=== PATIENT | female | born 2000 | race Caucasian/White ===

== ENCOUNTER 2022-11-09 13:10 | Emergency (ER) | payer OTHER, SELFPAY ==
--- NOTE | ~2022-11-09 | US_ITS ---
EXAMINATION: US OBSTETRICAL ULTRASOUND CLINICAL INFORMATION: Bleeding. Positive test. COMPARISON: None available. LMP: 10/16/2022. Gestational age by maternal dates is 3 weeks 3 days. Estimated date of delivery by maternal dates is 07/23/2023. TECHNIQUE: Transabdominal and transvaginal pelvic ultrasound was performed. Transvaginal exam was performed for better visualization of the uterus and ovaries. FINDINGS: The uterus measures 7.8 x 4.1 x 4.6 cm in dimension. No focal uterine lesion. No intrauterine gestational sac seen. Endometrial thickness measures 0.5 cm. The cervix is normal. The right ovary measures 4.9 x 1.6 x 3.1 cm. There is a 2 x 1.5 x 2.6 cm cyst with single septation. The left ovary measures 3 x 1.6 x 1.5 cm. There is a 3 mm small nonspecific echogenic focus in the left ovary. There is no fluid in the pelvis. US/US OB pelvic and transvaginal IMPRESSION: No intrauterine seen. This may be related to early gestational age.
--- NOTE | 2022-11-09 13:29 | ED_ITS ---
HPI - General Adult General Chief complaint: General Medical Stated complaint: vaginal spotting lower abd pain Time Seen by Provider: 11/09/22 14:01 Source: patient Mode of arrival: ambulatory Limitations: no limitations History of Present Illness HPI narrative: 22yoF who is who is presenting to the ER with complaints of suprapubic abdominal cramping with vaginal spotting over the past few days that has been consistent every time she wipes only a small amount. 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 Therefore on November 03 she took a home test and was positive. Then she followed up with an outpatient clinic in [place] she cannot remember the actual clinics name and she had blood test and that confirmed her . She reports she has a history of miscarriage where she bled for 3 weeks. She denies any fevers, chest pain or shortness of breath, palpitations, paresthesias, radiation of the suprapubic abdominal pain, flank pain, back pain, abnormal vaginal discharge, thoughts of STDs, constipation or diarrhea, black or bloody stools, recent travel or sick contacts, recent falls or trauma or any other symptoms complaints or concerns at this time. complaint: + test with suprapubic abdominal cramping and vaginal spotting Onset (ago): day(s) (The past few days) Related Data Previous Rx's Medication Instructions Recorded vitamin with calcium 1 tab PO DAILY 30 days #30 tabs 04/20/20 no.72-iron 27 mg-folic acid 1 mg tablet ( Vitamins Plus Low Iron) Allergies Allergy/AdvReac Type Severity Reaction Status Date / Time amoxicillin [AMOXICILLIN] Allergy Unknown HIVES Unverified 03/16/20 19:08 Review of Systems Review of Systems: Constitutional : No Fever, No Chills ENT/Mouth : No sore throat, No Rhinorrhea Eyes: No Eye Pain, No Redness Cardiovascular : No Chest Pain, No SOB Respiratory : No Cough, No Sputum, No Wheezing Gastrointestinal : No Nausea, No Vomiting, No Diarrhea, + abdominal pain, Genitourinary : + irregular bleeding, No Dysuria, No Urinary Frequency, No pelvic pain, No vaginal discharge, no hematuria Musculoskeletal : No Myalgias Skin : No rash Neuro : No Weakness, No Headache Psych : No Anxiety/Panic, No Depression Heme/Lymph: No bruising, No Lymphadenopathy Endocrine : No Polyuria, No Polydipsia Yes all other systems are reviewed and are negative [facility] Past Medical History Attestation statement: The following information was validated with the patient. Source: old records reviewed and nursing notes reviewed Social History Social History Advance Directives: No Advance Directives Information Provided: No Physical Exam ED Vital Signs: Vital Signs - 24 hr 11/09/22 13:30 Temperature 97.8 F Pulse Rate 97 Respiratory Rate 18 Blood Pressure 117/86 Pulse Oximetry 98 Oxygen Delivery Method Room Air BMI result Body Mass Index 37.4 Vital signs reviewed and all within normal limits. Appearance: Alert. Oriented X3. No acute distress. Head: Normal external exam. Normocephalic. Atraumatic. No Tilley signs noted. No raccoon eyes noted Eyes: PERRLA. EOMI. Conjunctiva and sclera normal. Eyelids normal. ENT: EAC normal. TM's Normal. Pharynx normal. Uvula midline. Moist mucous membranes. No trismus noted. No drooling noted. No muffled voice noted. Neck: Normal inspection. Neck supple. FROM. No adenopathy. Thyroid Normal. No meningeal signs. No neck mass noted. CVS: Normal heart rate and rhythm. Heart sound normal. No murmurs noted. Pulses normal throughout. Respiratory: No respiratory distress. Painless inspiration. Breath sounds normal. No wheezes/rales/rhonchi noted. Chest nontender. No accessory muscle usage noted or decreased air movement noted. Abdomen: Soft and mild suprapubic tenderness. Bowel sounds normal in all 4 quadrants. No distention noted. No organomegaly noted. No visible injury noted. : Patient refusing Back: No CVA tenderness. Full range of motion noted. Skin: Skin warm and dry. Normal skin color. Normal skin turgor. No rashes/lesions/lacerations noted. Extremities: No lower extremity edema. Extremities exhibit normal range of motion. Extremities nontender. Neuro: Oriented X 3. No motor deficit. No sensory deficit. Reflexes normal. Course Course Course Narrative: FABIOLA Hsieh is a 22-year-old female, presenting for evaluation of vaginal bleeding and lower abdominal pain. Patient reports that she found out she is 6 days ago. She has had some vaginal spotting that comes and goes. She reports that she has a history of abnormal menstrual cycles and was actually getting my period with my last . Her last menstrual cycle was October 13. She follows with [facility] for OBGYN care. Plan for labs, UA, type and screen, pelvic ultrasound Reevaluation(s) Reevaluation #1: Labs reviewed patient's serum quant is only 46. Urine is within normal limits although she has a negative . She is O positive for . Ultrasound revealed no intrauterine seen. This may be related to early gestational age. Therefore I printed out the results and handed to the patient. I wanted to perform a speculum exam although patient reports she did not make things worse I explained to her that we would not be making anything worse although she is refusing speculum exam. I also consulted with Dr. Reis he report that she should have repeat serum quant in 48 hours and follow-up with OBGYN. I also explained to her that this could be early versus spontaneous versus ectopic . Patient came out of the room and told Dr. Cano that she was on the phone with her kiss mixer and the kiss mixer told her that she could be discharged and follow up with her as an outpatient. Therefore patient eloped. Time: 16:09 Medical Decision Making Consult Healthcare Provider Management of the patient was discussed with: Insulation Worker [employer] Surface (Dr. Chato DOWELL) Lab Data MDM Lab Attestation statement: I reviewed the patient's lab results. 11/09/22 14:40 11/09/22 14:40 Labs: Lab Results 11/09/22 11/09/22 11/09/22 Range/Units 14:40 14:40 14:42 WBC 10.1 (4.8-10.8) X10*3/uL RBC 4.89 (4.20-5.50) X10*6/uL Hgb 12.3 (12.0-16.0) g/dl Hct 37.5 (37.0-47.0) % MCV 76.7 L (80.0-98.0) fL MCH 25.2 L (27.0-33.0) pg MCHC 32.8 (31.0-35.0) g/dl RDW 13.8 (11.0-16.0) % Plt Count 261 (160-400) X10*3/uL MPV 10.5 (9.4-12.3) fL Immature Gran % (Auto) 0.2 (0.0-0.4) % Neut % (Auto) 64.0 (45-73) % Lymph % (Auto) 27.9 (20-40) % [place] % (Auto) 5.4 (2-11) % Eos % (Auto) 2.1 (0-4) % Baso % (Auto) 0.4 (0-2) % Lymph # (Auto) 2.8 (1.2-4.9) X10*3/uL [place] # (Auto) 0.5 (0.1-1.2) X10*3/uL Eos # (Auto) 0.2 (0.0-0.4) X10*3/uL Baso # (Auto) 0.0 (0.0-0.2) X10*3/uL Abs Immat Gran (auto) 0.02 (0.00-0.03) X10*3/uL Absolute Neuts (auto) 6.5 (2.0-8.3) x10*3/uL Absolute Nucleated RBC 0.000 (0.0-0.012) X10*3/uL Nucleated RBC % (auto) 0.0 (0.0-0.2) /100WBC Sodium 141 (135-145) mmol/L Potassium 4.1 (3.3-5.1) mmol/L Chloride 106 (96-108) mmol/L Carbon Dioxide 30 H (22-29) mmol/L Anion Gap 9 L (12-20) BUN 8 L (9-16) mg/dL Creatinine 0.94 (0.5-1.4) mg/dL Estim Creat Clear Calc 108.1 Estimated GFR > 60 Random Glucose 93 (60-115) mg/dL Calcium 9.3 (8.4-10.2) mg/dL Total Bilirubin 0.3 (0.0-1.0) mg/dL AST 19 (5-31) U/L ALT 17 (0-31) U/L Alkaline Phosphatase 105 (39-117) U/L Total Protein 6.8 (6.5-8.0) g/dL Albumin 3.9 (3.5-5.0) g/dL Lipase 27 (8-78) U/L Beta HCG, Quant 46 mIU/mL Urine Color Yellow Urine Appearance Clear Urine pH 7.5 (5.0-9.0) Ur Specific [place] 1.010 (1.005-1.025) Urine Protein Negative (Neg-Trace) mg/dL Urine Glucose (UA) Negative (Negative) mg/dL Urine Ketones Negative (Negative) mg/dL Urine Blood Negative (Negative) Urine Nitrite Negative (Negative) Ur Leukocyte Esterase Negative (Negative) Urine RBC 0-2 (0-2) /HPF Urine WBC 0-5 (0-5) /HPF Ur Squamous Epith Cells 0-2 (0-2) /HPF Urine Bacteria None Seen (None Seen) Hyaline Casts 0-2 (0-2) /LPF Urine Test (NEGATIVE) 11/09/22 Range/Units 14:42 WBC (4.8-10.8) X10*3/uL RBC (4.20-5.50) X10*6/uL Hgb (12.0-16.0) g/dl Hct (37.0-47.0) % MCV (80.0-98.0) fL MCH (27.0-33.0) pg MCHC (31.0-35.0) g/dl RDW (11.0-16.0) % Plt Count (160-400) X10*3/uL MPV (9.4-12.3) fL Immature Gran % (Auto) (0.0-0.4) % Neut % (Auto) (45-73) % Lymph % (Auto) (20-40) % [place] % (Auto) (2-11) % Eos % (Auto) (0-4) % Baso % (Auto) (0-2) % Lymph # (Auto) (1.2-4.9) X10*3/uL [place] # (Auto) (0.1-1.2) X10*3/uL Eos # (Auto) (0.0-0.4) X10*3/uL Baso # (Auto) (0.0-0.2) X10*3/uL Abs Immat Gran (auto) (0.00-0.03) X10*3/uL Absolute Neuts (auto) (2.0-8.3) x10*3/uL Absolute Nucleated RBC (0.0-0.012) X10*3/uL Nucleated RBC % (auto) (0.0-0.2) /100WBC Sodium (135-145) mmol/L Potassium (3.3-5.1) mmol/L Chloride (96-108) mmol/L Carbon Dioxide (22-29) mmol/L Anion Gap (12-20) BUN (9-16) mg/dL Creatinine (0.5-1.4) mg/dL Estim Creat Clear Calc Estimated GFR Random Glucose (60-115) mg/dL Calcium (8.4-10.2) mg/dL Total Bilirubin (0.0-1.0) mg/dL AST (5-31) U/L ALT (0-31) U/L Alkaline Phosphatase (39-117) U/L Total Protein (6.5-8.0) g/dL Albumin (3.5-5.0) g/dL Lipase (8-78) U/L Beta HCG, Quant mIU/mL Urine Color Urine Appearance Urine pH (5.0-9.0) Ur Specific [place] (1.005-1.025) Urine Protein (Neg-Trace) mg/dL Urine Glucose (UA) (Negative) mg/dL Urine Ketones (Negative) mg/dL Urine Blood (Negative) Urine Nitrite (Negative) Ur Leukocyte Esterase (Negative) Urine RBC (0-2) /HPF Urine WBC (0-5) /HPF Ur Squamous Epith Cells (0-2) /HPF Urine Bacteria (None Seen) Hyaline Casts (0-2) /LPF Urine Test NEGATIVE (NEGATIVE) Independent Interpretation I performed an independent interpretation of an: Ultrasound (Ultrasound reviewed by myself agreeable radiology report) Radiology Impression Discussion of test interpretation with radiology: I have reviewed the radiologist's reading. Radiologist Impression: FINDINGS: The uterus measures 7.8 x 4.1 x 4.6 cm in dimension. No focal uterine lesion. No intrauterine gestational sac seen. Endometrial thickness measures 0.5 cm. The cervix is normal. The right ovary measures 4.9 x 1.6 x 3.1 cm. There is a 2 x 1.5 x 2.6 cm cyst with single septation. The left ovary measures 3 x 1.6 x 1.5 cm. There is a 3 mm small nonspecific echogenic focus in the left ovary. There is no fluid in the pelvis. US/US OB pelvic and transvaginal IMPRESSION: No intrauterine seen. This may be related to early gestational age. Discharge Plan Discharge Clinical Impression: First-trimester bleeding Patient Disposition: Elopement Prescriptions: No Action Vitamin Plus Low Iron 27 mg iron- 1 mg tablet 1 tab PO DAILY 30 Days Qty: 30 5RF Discharge Date/Time: 11/09/22 15:56
[2022-11-09 13:30] VITALS: BP 117/86; PULSE 97; RESP 18; TEMP 36.6; O2SAT 98; BMI 37.4
[2022-11-09 14:49] LABS: Basophils Percent Auto 0.4 % (0-2); Eosinophils Absolute Auto 0.2 X10*3/uL (0.0-0.4); Eosinophils Percent Auto 2.1 % (0-4); Hematocrit 37.5 % (37.0-47.0); Hemoglobin 12.3 g/dl (12.0-16.0); Imm Gran Abs Auto 0.02 X10*3/uL (0.00-0.03); Imm Gran Pct Auto 0.2 % (0.0-0.4); Lymphocytes Absolute Auto 2.8 X10*3/uL (1.2-4.9); Lymphocytes Percent Auto 27.9 % (20-40); MANUAL DIFF FLAG NO; Mean Corpuscular HGB Conc 32.8 g/dl (31.0-35.0); Mean Corpuscular Hemoglobin 25.2 pg (27.0-33.0); Mean Corpuscular Volume 76.7 fL (80.0-98.0); Mean Platelet Volume 10.5 fL (9.4-12.3); Monocytes Absolute Auto 0.5 X10*3/uL (0.1-1.2); Monocytes Percent Auto 5.4 % (2-11); Neutrophils Absolute Auto 6.5 x10*3/uL (2.0-8.3); Platelet Count 261 X10*3/uL (160-400); Red Blood Count 4.89 X10*6/uL (4.20-5.50); Red Cell Distribution Width 13.8 % (11.0-16.0); White Blood Count 10.1 X10*3/uL (4.8-10.8)
[2022-11-09 14:51] LABS: Appearance Urine Clear; Color Urine Yellow; Glucose Urine UA Negative (Negative); Leukocyte Esterase Urine Negative (Negative); Nitrite Urine Negative (Negative); PH 7.5 (5.0-9.0); Urine Blood Negative (Negative); Urine Ketones Negative (Negative); Urine Protein Negative (Neg-Trace)
[2022-11-09 14:53] LABS: Bacteria Urine None Seen (None Seen); Hyaline Casts Urine 0-2 /LPF (0-2); RBC Urine 0-2 /HPF (0-2); Squamous Epithelial Cell Urine 0-2 /HPF (0-2); WBC Urine 0-5 /HPF (0-5)
[2022-11-09 15:09] LABS: Alanine Aminotransferase 17 U/L (0-31); Albumin Level 3.9 g/dL (3.5-5.0); Alkaline Phosphatase 105 U/L (39-117); Anion Gap 9 (12-20); Aspartate Amino Transferase 19 U/L (5-31); Bilirubin Total 0.3 mg/dL (0.0-1.0); Blood Urea Nitrogen 8 mg/dL (9-16); Calcium 9.3 mg/dL (8.4-10.2); Carbon Dioxide 30 mmol/L (22-29); Chloride 106 mmol/L (96-108); Creatinine Clr Calc Pharmacy 108.1; Estimated Glomerular Filt Rate > 60; Glucose Random 93 mg/dL (60-115); Lipase 27 U/L (8-78); Potassium 4.1 mmol/L (3.3-5.1); Sodium 141 mmol/L (135-145); Total Protein 6.8 g/dL (6.5-8.0)
[2022-11-09 15:10] LABS: HCG Quantitative 46 mIU/mL
[2022-11-09 15:18] LABS: UPreg QC Valid YES
[2022-11-09 15:21] LABS: Urine Pregnancy NEGATIVE (NEGATIVE)
--- NOTE | 2022-11-09 15:55 | PC.NURSE ---
PT FOUND AT THE EXIT DOOR, SHE STATES SHE WANTS TO LEAVE AND WILL FOLLOW UP WITH [facility] [employer] [facility] SHE HAS HER US RESULTS IN HAND AND HAD BEEN EDUCATED ON RESULTS BY PROVIDER. SHE DID NOT WANT TO WAIT FOR FORMAL DISCHARGE.
== END 2022-11-09 15:56 | disposition left against medical advice (07) ==
PROVIDERS: Physician Assistant; Physician Assistant Medical; Emergency Provider Emergency Medicine; PCP Pediatrics
DX: O20.9 Hemorrhage in early pregnancy, unspecified (principal); Z3A.01 Less than 8 weeks gestation of pregnancy
CPT/HCPCS: 36415; 76801; 76817; 80053; 81001; 81025; 83690; 84702; 85025; 86850; 86900; 86901; 99282; 99284

== ENCOUNTER 2023-04-01 14:38 | Emergency (ER) | payer OTHER, SELFPAY ==
--- NOTE | 2023-04-01 14:41 | ED_ITS ---
HPI - General Adult General Chief complaint: Chest Pain Stated complaint: 6 wks preg/ chest pain Related Data Previous Rx's ?Medication ?Instructions ?Recorded vitamin with calcium 1 tab PO DAILY 30 days #30 tabs 04/20/20 no.72-iron 27 mg-folic acid 1 mg tablet ( Vitamins Plus Low Iron) Allergies Allergy/AdvReac Type Severity Reaction Status Date / Time amoxicillin [AMOXICILLIN] Allergy Unknown HIVES Verified 04/27/23 10:47 [facility] Social History Social History Smoked in Last 30 Days: No Use of substances other than those prescribed or required for medical reasons: No Advance Directives: No Advance Directives Information Provided: Yes Physical Exam ED Vital Signs: BMI result Body Mass Index 38.3 Course Course Course Narrative: This is an RME: Additional HPI, ROS, PE not included below will be deferred to primary provider. 23 yo f presents w/ cp, sob currently 6 weeks these sx have been on going for 2 days. Plan- labs, ekg. Medical Decision Making Lab Data 04/01/23 14:54 04/01/23 14:54 Labs: Lab Results 04/01/23 Range/Units 14:54 WBC 11.8 H (4.8-10.8) X10*3/uL RBC 4.51 (4.20-5.50) X10*6/uL Hgb 11.3 L (12.0-16.0) g/dl Hct 35.0 L (37.0-47.0) % MCV 77.6 L (80.0-98.0) fL MCH 25.1 L (27.0-33.0) pg MCHC 32.3 (31.0-35.0) g/dl RDW 14.6 (11.0-16.0) % Plt Count 252 (160-400) X10*3/uL MPV 10.0 (9.4-12.3) fL Immature Gran % (Auto) 0.3 (0.0-0.4) % Neut % (Auto) 74.4 H (45-73) % Lymph % (Auto) 19.1 L (20-40) % [place] % (Auto) 4.7 (2-11) % Eos % (Auto) 1.1 (0-4) % Baso % (Auto) 0.4 (0-2) % Lymph # (Auto) 2.3 (1.2-4.9) X10*3/uL [place] # (Auto) 0.6 (0.1-1.2) X10*3/uL Eos # (Auto) 0.1 (0.0-0.4) X10*3/uL Baso # (Auto) 0.1 (0.0-0.2) X10*3/uL Abs Immat Gran (auto) 0.04 H (0.00-0.03) X10*3/uL Absolute Neuts (auto) 8.8 H (2.0-8.3) x10*3/uL Absolute Nucleated RBC 0.000 (0.0-0.012) X10*3/uL Nucleated RBC % (auto) 0.0 (0.0-0.2) /100WBC PT 12.3 (11.1-13.3) SEC INR 1.0 (0.9-1.1) Sodium 137 (135-145) mmol/L Potassium 3.8 (3.3-5.1) mmol/L Chloride 106 (96-108) mmol/L Carbon Dioxide 23 (22-29) mmol/L Anion Gap 12 (12-20) BUN 8 L (9-16) mg/dL Creatinine 0.77 (0.5-1.4) mg/dL Estim Creat Clear Calc 132.5 Estimated GFR > 60 Random Glucose 91 (60-115) mg/dL Calcium 9.3 (8.4-10.2) mg/dL Magnesium 1.7 (1.6-2.6) mg/dL Total Bilirubin 0.2 (0.0-1.0) mg/dL AST 31 (5-31) U/L ALT 37 H (0-31) U/L Alkaline Phosphatase 92 (39-117) U/L B-Natriuretic Peptide 49 (<100) pg/mL Total Protein 7.1 (6.5-8.0) g/dL Albumin 3.7 (3.5-5.0) g/dL Beta HCG, Quant 02021 mIU/mL COVID-19 (OSMAN) Negative (Negative) COVID-19 Clin Com See Note Discharge Plan Discharge Clinical Impression: Eloped from emergency department Patient Disposition: Left W/O Completing Treatment Prescriptions: No Action Vitamin Plus Low Iron 27 mg iron- 1 mg tablet 1 tab PO DAILY 30 Days Qty: 30 5RF Discharge Date/Time: 04/01/23 20:38
--- NOTE | 2023-04-01 14:44 | ECG_ITS ---
Test Reason : CP,SOB Blood Pressure : / mmHG Vent. Rate : 116 BPM Atrial Rate : 116 BPM P-R Int : 140 ms QRS Dur : 066 ms QT Int : 322 ms P-R-T Axes : 052 069 -13 degrees QTc Int : 447 ms Sinus tachycardia Possible Left atrial enlargement Nonspecific T wave abnormality Abnormal ECG No previous ECGs available Referred By: Nick Robles Electronically Signed By:ANAHI BOSS
[2023-04-01 14:59] LABS: MANUAL DIFF FLAG NO
[2023-04-01 15:03] LABS: Basophils Absolute Auto 0.1 X10*3/uL (0.0-0.2); Basophils Percent Auto 0.4 % (0-2); Eosinophils Absolute Auto 0.1 X10*3/uL (0.0-0.4); Eosinophils Percent Auto 1.1 % (0-4); Hemoglobin 11.3 g/dl (12.0-16.0); Imm Gran Abs Auto 0.04 X10*3/uL (0.00-0.03); Imm Gran Pct Auto 0.3 % (0.0-0.4); Lymphocytes Absolute Auto 2.3 X10*3/uL (1.2-4.9); Lymphocytes Percent Auto 19.1 % (20-40); Mean Corpuscular HGB Conc 32.3 g/dl (31.0-35.0); Mean Corpuscular Hemoglobin 25.1 pg (27.0-33.0); Mean Corpuscular Volume 77.6 fL (80.0-98.0); Monocytes Absolute Auto 0.6 X10*3/uL (0.1-1.2); Monocytes Percent Auto 4.7 % (2-11); Neutrophils Absolute Auto 8.8 x10*3/uL (2.0-8.3); Neutrophils Percent Auto 74.4 % (45-73); Platelet Count 252 X10*3/uL (160-400); Red Blood Count 4.51 X10*6/uL (4.20-5.50); Red Cell Distribution Width 14.6 % (11.0-16.0); White Blood Count 11.8 X10*3/uL (4.8-10.8)
[2023-04-01 15:09] VITALS: BP 120/65; PULSE 88; RESP 18; TEMP 36.7; O2SAT 99; BMI 38.3
[2023-04-01 15:15] LABS: Prothrombin Time 12.3 SEC (11.1-13.3)
[2023-04-01 15:24] LABS: B Type Natriuretic Peptide 49 pg/mL (<100)
[2023-04-01 15:25] LABS: Alanine Aminotransferase 37 U/L (0-31); Albumin Level 3.7 g/dL (3.5-5.0); Alkaline Phosphatase 92 U/L (39-117); Anion Gap 12 (12-20); Aspartate Amino Transferase 31 U/L (5-31); Bilirubin Total 0.2 mg/dL (0.0-1.0); Blood Urea Nitrogen 8 mg/dL (9-16); Calcium 9.3 mg/dL (8.4-10.2); Carbon Dioxide 23 mmol/L (22-29); Chloride 106 mmol/L (96-108); Creatinine Clr Calc Pharmacy 132.5; Estimated Glomerular Filt Rate > 60; Glucose Random 91 mg/dL (60-115); Magnesium 1.7 mg/dL (1.6-2.6); Potassium 3.8 mmol/L (3.3-5.1); Sodium 137 mmol/L (135-145); Total Protein 7.1 g/dL (6.5-8.0)
[2023-04-01 15:29] LABS: COVID-19 Test Negative (Negative); IDNOW Serial# 08D9AD1C
== END 2023-04-01 20:38 | disposition left against medical advice (07) ==
PROVIDERS: Physician Assistant; Emergency Provider Emergency Medicine
DX: O26.891 Other specified pregnancy related conditions, first trimester (principal); R07.9 Chest pain, unspecified; R06.02 Shortness of breath; Z3A.01 Less than 8 weeks gestation of pregnancy; Z11.52 Encounter for screening for COVID-19
CPT/HCPCS: 36415; 80053; 83735; 83880; 84702; 85025; 85610; 87635; 93005; 99283

== ENCOUNTER 2023-04-27 10:37 | Emergency (ER) | payer OTHER, SELFPAY ==
--- NOTE | ~2023-04-27 | US_ITS ---
EXAMINATION: US OBSTETRICAL ULTRASOUND CLINICAL INFORMATION: Abdominal and pelvic pain COMPARISON: Ultrasound OB 11/09/2022 LMP: 02/16/2023. Gestational age by maternal dates is 10 weeks and 0 days. Estimated date of delivery by maternal dates is 11/23/2023. TECHNIQUE: Transabdominal ultrasound pelvis. FINDINGS: There is a single intrauterine gestational sac , embryo/fetus, and cardiac activity. Yolk sac is not visualized. There is no significant subchorionic hemorrhage or hematoma. HR: 167 beats per minute. CRL (crown rump length): 3.21 cm (10 weeks and 1 day +/- 4 days). KAVITHA (estimated date of delivery): 11/22/2023 +/- 4 days. MATERNAL ADNEXA: The right maternal ovary measures 2.4 x 1.95 2.4 cm and appears unremarkable. The left maternal ovary is not visualized. There is no significant maternal adnexal mass. No maternal pelvic ascites. US/US OB <= 14 weeks fetus IMPRESSION: 1. Single intrauterine gestation with ultrasound gestational age of 10 weeks and 1 day +/- 4 days. 2. Estimated date of delivery is 11/22/2023 +/- 4 days. 3. No maternal adnexal mass or pelvic ascites.
[2023-04-27 10:47] VITALS: BP 107/55; PULSE 88; RESP 17; TEMP 36.6; O2SAT 99; BMI 37.1
--- NOTE | 2023-04-27 12:24 | ED_ITS ---
HPI - General Adult General Chief complaint: General Medical Stated complaint: 10 wks abd pain Time Seen by Provider: 04/27/23 14:15 Source: patient Mode of arrival: ambulatory History of Present Illness HPI narrative: 23-year-old female, , who presents with current obstetric care via [facility]wives and states that she has been having increasing difficulty with constipation and states that she is 10 weeks and has had confirmation by ultrasound at approximately 6 weeks. Patient reports her last bowel movement was 4-5 days ago she denies any fevers, chills, urinary symptoms, vomiting. Patient states she has had vaginal spotting. Related Data Previous Rx's Medication Instructions Recorded vitamin with calcium 1 tab PO DAILY 30 days #30 tabs 04/20/20 no.72-iron 27 mg-folic acid 1 mg tablet ( Vitamins Plus Low Iron) Allergies Allergy/AdvReac Type Severity Reaction Status Date / Time amoxicillin [AMOXICILLIN] Allergy Unknown HIVES Verified 04/27/23 10:47 Review of Systems 2 Review of Systems: Pertinent positives and negatives as stated in HPI PMFSH Past Medical History Source: nursing notes reviewed Social History Social History Smoked in Last 30 Days: No Use of substances other than those prescribed or required for medical reasons: No Advance Directives: No Advance Directives Information Provided: Yes Physical Exam ED Vital Signs: Vital Signs - 24 hr 04/27/23 10:47 04/27/23 14:30 Temperature 98 F 98.3 F Pulse Rate 88 73 Respiratory Rate 17 12 Blood Pressure 107/55 L 102/55 L Pulse Oximetry 99 99 Oxygen Delivery Method Room Air Room Air BMI result Body Mass Index 37.1 VITAL SIGNS: Reviewed. GENERAL: Well developed, well nourished, in no acute distress. HEAD: Normocephalic/atraumatic EYES: PERRLA, EOMI EARS: Ext canals without abnormality NOSE: Nares patent bilateral OROPHARYNX: no oral lesions noted, posterior pharynx clear NECK: Supple, no adenopathy LUNGS: Normal breath sounds. No adventitious sounds or accessory muscle use. SpO2<99> CARDIOVASCULAR: Regular rate and rhythm without noted murmurs ABDOMEN: Soft, non-tender, non-distended with bowel sounds. MUSCULOSKELETAL: No tenderness, deformities, or effusions noted on gross inspection. EXTREMITIES: No cyanosis, clubbing or edema. SKIN: Inspection of the skin reveals no rashes NEUROLOGIC: Alert and oriented x 4. Strength and sensation to light touch were grossly intact x 4. Course Course Course Narrative: This is an RME: Additional HPI, ROS, PE not included below will be deferred to primary provider. 23 year 1 ectopic presents w/ lower abd pain and discomfort X 2 days. Had vaginal bleeding but it resolved. Sharp stabbing pain. Plan- labs Medical Decision Making Medical Decision Making MDM Narrative: 23-year-old female with history and clinical presentation, DDX: Constipation, UTI, SAB, no clinical suspicion for appendicitis or diverticulitis. Patient remains afebrile, she is not tachypneic or tachycardic and is oxygenating well on room air. Reviewed all investigations and hematologic indices are negative for leukocytosis or left shift, there is no anemia or thrombocytopenia. Chemistry indices are grossly within normal limits without evidence of JORDAN and there is no electrolyte or liver enzyme abnormalities. hCG-134,122. Urinalysis negative for UTI. Ultrasound demonstrates IUP with an estimated gestational age of 10 weeks and 1 day. My interpretation is patient has constipation and will be given recommendations for the best way to treat this and instructions to follow-up with her drum sander offbearer and primary care doctor. Differential Diagnosis Differential Diagnoses: The differential diagnosis associated with the presentation includes Please see the discussion above Admission/Observation Consideration of admission/observation: Escalation of care including admission/observation considered Please see the discussion above Lab Data [facility] Lab Attestation statement: I reviewed the patient's lab results. Please see the discussion above 04/27/23 12:35 04/27/23 12:35 Labs: Lab Results 04/27/23 04/27/23 Range/Units 12:35 12:39 WBC 10.2 (4.8-10.8) X10*3/uL RBC 4.81 (4.20-5.50) X10*6/uL Hgb 12.1 (12.0-16.0) g/dl Hct 37.2 (37.0-47.0) % MCV 77.3 L (80.0-98.0) fL MCH 25.2 L (27.0-33.0) pg MCHC 32.5 (31.0-35.0) g/dl RDW 14.7 (11.0-16.0) % Plt Count 238 (160-400) X10*3/uL MPV 10.7 (9.4-12.3) fL Immature Gran % (Auto) 0.3 (0.0-0.4) % Neut % (Auto) 71.8 (45-73) % Lymph % (Auto) 22.0 (20-40) % [place] % (Auto) 4.4 (2-11) % Eos % (Auto) 1.2 (0-4) % Baso % (Auto) 0.3 (0-2) % Lymph # (Auto) 2.3 (1.2-4.9) X10*3/uL [place] # (Auto) 0.5 (0.1-1.2) X10*3/uL Eos # (Auto) 0.1 (0.0-0.4) X10*3/uL Baso # (Auto) 0.0 (0.0-0.2) X10*3/uL Abs Immat Gran (auto) 0.03 (0.00-0.03) X10*3/uL Absolute Neuts (auto) 7.3 (2.0-8.3) x10*3/uL Absolute Nucleated RBC 0.000 (0.0-0.012) X10*3/uL Nucleated RBC % (auto) 0.0 (0.0-0.2) /100WBC Sodium 136 (135-145) mmol/L Potassium 4.3 (3.3-5.1) mmol/L Chloride 105 (96-108) mmol/L Carbon Dioxide 22 (22-29) mmol/L Anion Gap 13 (12-20) BUN 7 L (9-16) mg/dL Creatinine 0.76 (0.5-1.4) mg/dL Estim Creat Clear Calc 132.0 Estimated GFR > 60 Random Glucose 84 (60-115) mg/dL Calcium 9.5 (8.4-10.2) mg/dL Magnesium 1.7 (1.6-2.6) mg/dL Total Bilirubin 0.2 (0.0-1.0) mg/dL AST 21 (5-31) U/L ALT 29 (0-31) U/L Alkaline Phosphatase 104 (39-117) U/L Total Protein 7.7 (6.5-8.0) g/dL Albumin 3.8 (3.5-5.0) g/dL Beta HCG, Quant 612803 mIU/mL Urine Color Dark Yellow Urine Appearance Clear Urine pH 5.5 (5.0-9.0) Ur Specific [place] >= 1.030 H (1.005-1.025) Urine Protein Negative (Neg-Trace) mg/dL Urine Glucose (UA) Negative (Negative) mg/dL Urine Ketones Negative (Negative) mg/dL Urine Blood Negative (Negative) Urine Nitrite Negative (Negative) Ur Leukocyte Esterase Trace H (Negative) Urine RBC 0-2 (0-2) /HPF Urine WBC 0-5 (0-5) /HPF Ur Squamous Epith Cells 6-10 (0-2) /HPF Urine Bacteria 1+ (None Seen) Hyaline Casts 3-5 (0-2) /LPF Radiology Impression Discussion of test interpretation with radiology: I have reviewed the radiologist's reading. Radiologist Impression: Please see the discussion above Chronic Conditions Patient?s care impacted by: Other Discharge Plan Discharge Clinical Impression: Constipation, Patient Disposition: Home, Self-Care Instructions: (ED), Constipation (ED), High Fiber Diet (ED), Fleet Enema (ED) Additional Instructions: 1. Please resume any home medications as prescribed. 2. I highly recommend [id number] MiraLax, twice a day if needed until you are having soft regular stools. Continue to drink plenty of water. 3. Follow-up with your primary care provider by calling the office 1st thing in the morning. 4. Please follow-up with your drum sander offbearer by calling the office in the morning. Do not hesitate to return to the emergency room should you experience any worsening of symptoms. Prescriptions: No Action Vitamin Plus Low Iron 27 mg iron- 1 mg tablet 1 tab PO DAILY 30 Days Qty: 30 5RF
[2023-04-27 12:45] LABS: MANUAL DIFF FLAG NO
[2023-04-27 12:47] LABS: Basophils Percent Auto 0.3 % (0-2); Eosinophils Absolute Auto 0.1 X10*3/uL (0.0-0.4); Eosinophils Percent Auto 1.2 % (0-4); Hematocrit 37.2 % (37.0-47.0); Hemoglobin 12.1 g/dl (12.0-16.0); Imm Gran Abs Auto 0.03 X10*3/uL (0.00-0.03); Imm Gran Pct Auto 0.3 % (0.0-0.4); Lymphocytes Absolute Auto 2.3 X10*3/uL (1.2-4.9); Mean Corpuscular HGB Conc 32.5 g/dl (31.0-35.0); Mean Corpuscular Hemoglobin 25.2 pg (27.0-33.0); Mean Corpuscular Volume 77.3 fL (80.0-98.0); Mean Platelet Volume 10.7 fL (9.4-12.3); Monocytes Absolute Auto 0.5 X10*3/uL (0.1-1.2); Monocytes Percent Auto 4.4 % (2-11); Neutrophils Absolute Auto 7.3 x10*3/uL (2.0-8.3); Neutrophils Percent Auto 71.8 % (45-73); Platelet Count 238 X10*3/uL (160-400); Red Blood Count 4.81 X10*6/uL (4.20-5.50); Red Cell Distribution Width 14.7 % (11.0-16.0); White Blood Count 10.2 X10*3/uL (4.8-10.8)
[2023-04-27 12:48] LABS: Appearance Urine Clear; Color Urine Dark Yellow; Glucose Urine UA Negative (Negative); Leukocyte Esterase Urine Trace (Negative); Nitrite Urine Negative (Negative); PH 5.5 (5.0-9.0); Specific Gravity - Urine >= 1.030 (1.005-1.025); UMIC TRIGGER UACC YES; Urine Blood Negative (Negative); Urine Ketones Negative (Negative); Urine Protein Negative (Neg-Trace)
[2023-04-27 12:50] LABS: Bacteria Urine 1+ (None Seen); RBC Urine 0-2 /HPF (0-2); WBC Urine 0-5 /HPF (0-5)
[2023-04-27 13:07] LABS: Alanine Aminotransferase 29 U/L (0-31); Albumin Level 3.8 g/dL (3.5-5.0); Alkaline Phosphatase 104 U/L (39-117); Anion Gap 13 (12-20); Aspartate Amino Transferase 21 U/L (5-31); Bilirubin Total 0.2 mg/dL (0.0-1.0); Blood Urea Nitrogen 7 mg/dL (9-16); Calcium 9.5 mg/dL (8.4-10.2); Carbon Dioxide 22 mmol/L (22-29); Chloride 105 mmol/L (96-108); Estimated Glomerular Filt Rate > 60; Glucose Random 84 mg/dL (60-115); Magnesium 1.7 mg/dL (1.6-2.6); Potassium 4.3 mmol/L (3.3-5.1); Sodium 136 mmol/L (135-145); Total Protein 7.7 g/dL (6.5-8.0)
--- NOTE | 2023-04-27 14:19 | PC.NURSE ---
pt a&o x4, pleasant, calm, and cooperative. here for lower abdomen pain/constipation x4-5 days. pt sts she normally has a BM every other day. sts shes been taking her daily stool softener and hasn't helped. pt has been eating and drinking regularly. sts her baby's father will be here soon with food. it was communicated to the pt to hold off eating until given the 'ok' by the provider after she is seen. awaiting provider pickup.
[2023-04-27 14:30] VITALS: BP 102/55; PULSE 73; RESP 12; TEMP 36.8; O2SAT 99
== END 2023-04-27 17:48 | disposition home or self-care (01) ==
PROVIDERS: Physician Assistant; Emergency Provider Student in an Organized Health Care Education/Training Program
DX: O26.91 Pregnancy related conditions, unspecified, first trimester (principal); Z3A.10 10 weeks gestation of pregnancy; Z79.899 Other long term (current) drug therapy
CPT/HCPCS: 36415; 76801; 80053; 81001; 83735; 84702; 85025; 99284

== ENCOUNTER 2024-02-05 23:06 | Emergency (ER) | payer OTHER, SELFPAY ==
[2024-02-05 23:28] VITALS: BP 120/68; PULSE 71; RESP 16; TEMP 36.9; O2SAT 98; BMI 35.8
[2024-02-06] VITALS: BP 121/66; PULSE 62; RESP 16; TEMP 36.4; O2SAT 100
--- NOTE | 2024-02-06 01:34 | ED.GENADULT ---
HPI - General Adult General Chief complaint: General Medical Stated complaint: infected nose piercing Time Seen by Provider: 02/06/24 01:27 Source: patient Mode of arrival: ambulatory Limitations: no limitations History of Present Illness ED Provider: Dr. Tonia Dowling HPI narrative: Patient comes to the emergency room complaining of an infection on the right nostril due to a piercing that occurred 4 days ago. Patient was able to remove the piercing prior to arrival. Patient denies fever chills. Patient states that prior to removing the piercing, there was some discharge. Related Data Previous Rx's ?Medication ?Instructions ?Recorded vitamin with calcium 1 tab PO DAILY 30 days #30 tabs 04/20/20 no.72-iron 27 mg-folic acid 1 mg tablet ( Vitamins Plus Low Iron) bacitracin 500 unit/gram topical 1 appl topical TID #12 ea 02/06/24 packet cephalexin 250 mg capsule 250 mg PO BID #14 caps 02/06/24 Allergies Allergy/AdvReac Type Severity Reaction Status Date / Time amoxicillin [AMOXICILLIN] Allergy Unknown HIVES Verified 02/05/24 23:31 Review of Systems Review of Systems: Constitutional : No Weight loss, No Fever, No Chills, No Night Sweats, No Fatigue, No Malaise ENT/Mouth : No Hearing loss, No Ear Pain, No Nasal Congestion, No Sinus Pain, No Hoarseness, No sore throat, No Rhinorrhea, No Swallowing Difficulty Eyes: No Eye Pain, No Swelling, No Redness, No Foreign Body, No Discharge, No Vision Changes Cardiovascular : No Chest Pain, No SOB, No Dyspnea on Exertion, No Orthopnea, No Edema, No Palpitations Respiratory : No Cough, No Sputum, No Wheezing, No Smoke Exposure, No Dyspnea Gastrointestinal : No Nausea, No Vomiting, No Diarrhea, No Constipation, No abdominal Pain, No Hematochezia, No Melena Genitourinary : no irregular bleeding, No Dysuria, No Urinary Frequency, No Hematuria, No Urinary Incontinence, No Urgency, No Flank Pain, No Urinary Flow Changes, No Hesitancy Musculoskeletal : No joint pain, No Myalgias, No Joint Swelling Skin : Complaining of a piercing infection on the right nostril Neuro : No Weakness, No Numbness, No Paresthesias, No Loss of Consciousness, No Dizziness, No Headache Psych : No Anxiety/Panic, No Depression, No SI/HI/AH/VH, No Social Issues, Heme/Lymph: No Bruising, No Bleeding,No Lymphadenopathy Endocrine : No Polyuria, No Polydipsia, No Temperature Intolerance PMFSH Social History Social History Advance Directives: No Advance Directives Information Provided: No Physical Exam ED Vital Signs: Vital Signs - 24 hr 02/05/24 23:28 02/06/24 00:00 Temperature 98.4 F 97.5 F Pulse Rate 71 62 Respiratory Rate 16 16 Blood Pressure 120/68 121/66 Pulse Oximetry 98 100 Oxygen Delivery Method Room Air Room Air BMI result Body Mass Index 35.8 Const Other: Appearance: Alert. Oriented X3. No acute distress. Eyes: Pupils equal, round and reactive to light. ENT: Pharynx normal. Mild erythema on the external right nostril, small bump no abscess on the internal side of the nostril. Neck: Normal inspection. Neck supple. No lymph nodes noted. No crepitus CVS: Normal heart rate and rhythm. Pulses normal. Normal S1 and S2 Respiratory: No respiratory distress. Breath sounds normal. No Wheezing. No rales Abdomen: Soft and nontender. No rigidity. No distention. Skin: Skin warm and dry. Normal skin color. Normal skin turgor. Extremities: No lower extremity edema. No Lacerations. No Rash Neuro: Oriented X 3. No motor deficit. No sensory deficit. Moving all extremities. No slurred speech. CN 2 through 12 grossly intact Psych: calm, cooperative, normal affect Medical Decision Making Medical Decision Making MDM Narrative: -the nose ring was removed by the patient prior to arrival -patient instructed to apply bacitracin, she has a very mild infection. -patient states that she does not have good access to a PCP. Patient currently . Discussed with the patient to try bacitracin 1st for the 1st 24-48 hours. If the erythema worsens or she does not get any better, patient instructed to take p.o. antibiotics (cephalexin). Should not affect . Differential Diagnosis Differential Diagnoses: The differential diagnosis associated with the presentation includes (Abscess, cellulitis) Discharge Plan Discharge Clinical Impression: Cellulitis Patient Disposition: Home, Self-Care Instructions: Cellulitis (ED) Additional Instructions: Please follow-up with your primary care physician tomorrow. If you have any worsening or new symptoms, please return to the emergency room or call 911 Prescriptions: New bacitracin 500 unit/gram packet 1 appl topical TID Qty: 12 0RF cephalexin 250 mg capsule 250 mg PO BID Qty: 14 0RF No Action Vitamin Plus Low Iron 27 mg iron- 1 mg tablet 1 tab PO DAILY 30 Days Qty: 30 5RF Print Language: Kinyarwanda
[2024-02-06] MEDS: Bacitracin Oint 0.9 GM PACKET 1 APPL TOPICAL (01:38)
[2024-02-06 01:54] VITALS: BP 121/66; PULSE 62; RESP 16; TEMP 36.4; O2SAT 100
== END 2024-02-06 01:55 | disposition home or self-care (01) ==
PROVIDERS: Emergency Provider Emergency Medicine
DX: J34.0 Abscess, furuncle and carbuncle of nose (principal)
CPT/HCPCS: 99283

== ENCOUNTER 2024-05-06 23:45 | Emergency (ER) | payer OTHER, SELFPAY ==
[2024-05-06 23:53] VITALS: BP 111/63; BP 121/64; PULSE 106; PULSE 95; RESP 16; TEMP 36.8; O2SAT 100; BMI 35.7
--- NOTE | 2024-05-06 23:59 | ED_ITS ---
HPI - Chest Pain General Chief Complaint: General Medical Stated Complaint: chest pain x2-3 days Time Seen by Provider: 05/06/24 23:58 Source: patient Mode of arrival: EMS Limitations: no limitations History of Present Illness ED Provider: greg HARTMAN narrative: Patient is 24 years old with history of anxiety and depression comes here for having lower abdominal discomfort and when he she had hard bowel movement had blood streaks with the stool mixed then had loose bowels with bright red blood x2 no prior history of hemorrhoids in the past patient just had a vaginal delivery 5 months ago patient also complaining of pulling sensation in the left side of the chest for last 2 days off and on no shortness a breath no palpitation no leg swelling Related Data Previous Rx's ?Medication ?Instructions ?Recorded vitamin with calcium 1 tab PO DAILY 30 days #30 tabs 04/20/20 no.72-iron 27 mg-folic acid 1 mg tablet ( Vitamins Plus Low Iron) bacitracin 500 unit/gram topical 1 appl topical TID #12 ea 02/06/24 packet cephalexin 250 mg capsule 250 mg PO BID #14 caps 02/06/24 hydrocortisone acetate 25 mg 25 mg HI BID #12 ea 05/07/24 rectal suppository (Anusol-HC) Allergies Allergy/AdvReac Type Severity Reaction Status Date / Time amoxicillin [AMOXICILLIN] Allergy Unknown HIVES Verified 05/07/24 00:03 Review of Systems Review of Systems: Yes all other systems are reviewed and are negative [facility] Social History Social History Advance Directives: No Advance Directives Information Provided: No Do you have a plan to hurt others: No Plan Physical Exam Vital Signs: Vital Signs: Last Vital Signs Temp 98.2 F 05/06/24 23:53 Pulse 95 05/06/24 23:53 Resp 16 05/06/24 23:53 BP 111/63 05/06/24 23:53 Pulse Ox 100 05/06/24 23:53 O2 Del Method Room Air 05/06/24 23:53 BMI result Body Mass Index 35.7 Appearance: Alert. Oriented X3. No acute distress. Eyes: No pallor or icterus ENT: Pharynx normal. Oral Mucosa moist Neck: Normal inspection. Neck supple. CVS: Normal heart rate and rhythm. Pulses normal. Respiratory: No respiratory distress. Equal air entry bilateral, no wheezing/rales/rhonchi Abdomen: Soft and nontender. Bowel sounds are present, no mass palpable, no CVA tenderness rectal: Brown stool no blood seen on the finger internal hemorrhoids palpable no active bleeding Skin: Skin warm and dry. Normal skin color. Normal skin turgor. Extremities: No lower extremity edema. No calf tenderness Neuro: Oriented X 3. No motor deficit. Medical Decision Making Medical Decision Making [facility] Narrative: Patient's with minor rectal bleed rectal exam was negative except for palpable hemorrhoids abdomen soft nontender EKG negative for any acute ischemic changes patient low risk for ACS heart score of 0 likely had internal hemorrhoid bleed will prescribe Anusol suppository Differential Diagnosis Differential Diagnoses: The differential diagnosis associated with the presentation includes Independent Interpretation I performed an independent interpretation of an: EKG Interpretation: Normal sinus rhythm heart rate 86 beats per minute normal interval normal axis no acute STT wave changes no acute ischemia Discharge Plan Discharge Clinical Impression: Hemorrhoids, internal, with bleeding Patient Disposition: Home, Self-Care Instructions: Hemorrhoids (ED) Additional Instructions: Likely have bleeding from internal hemorrhoids Avoid straining/constipation Use Anusol suppository twice a day until heals completely Follow with PCP as needed Prescriptions: New hydrocortisone acetate [Anusol-HC] 25 mg suppository 25 mg HI BID Qty: 12 0RF No Action Vitamin Plus Low Iron 27 mg iron- 1 mg tablet 1 tab PO DAILY 30 Days Qty: 30 5RF bacitracin 500 unit/gram packet 1 appl topical TID Qty: 12 0RF cephalexin 250 mg capsule 250 mg PO BID Qty: 14 0RF Print Language: Dutch
--- NOTE | 2024-05-07 | ECG_ITS ---
Test Reason : CHEST PAIN Blood Pressure : / mmHG Vent. Rate : 086 BPM Atrial Rate : 086 BPM P-R Int : 140 ms QRS Dur : 062 ms QT Int : 358 ms P-R-T Axes : 038 060 013 degrees QTc Int : 428 ms Normal sinus rhythm Normal ECG When compared with ECG of 01-APR-2023 14:47, Nonspecific T wave abnormality, improved in Anterolateral leads Referred By: Luis Iverson Electronically Signed By:SAMUEL FIGUEROA MD
--- NOTE | 2024-05-07 01:45 | PC.NURSE ---
on arrival to ed16 via ems MD to bedside. per MD to only do ekg and MD will preform rectal exam. ekg completed. rectal exam by MD with this RN in room, pt tolerated well. at d/c pt educated on hemorrhoids and d/c instructions by MD. pt verbalizes understanding. educated pt to return if any worsening sx and to f/u with pcp/obgyn as needed. skin warm and dry nad at time of d/c, vss.
[2024-05-07 01:48] VITALS: BP 111/63; PULSE 95; RESP 16; TEMP 36.8; O2SAT 100
== END 2024-05-07 01:00 | disposition home or self-care (01) ==
PROVIDERS: Emergency Provider Internal Medicine
DX: K64.8 Other hemorrhoids (principal); K62.5 Hemorrhage of anus and rectum; R07.9 Chest pain, unspecified
CPT/HCPCS: 93005; 99283

== ENCOUNTER → 2024-05-07 00:37 | Outpatient (BNV) | payer OTHER, SELFPAY | PROVIDERS: Emergency Provider Internal Medicine; Visit Provider Internal Medicine Cardiovascular Disease | DX: R07.9 Chest pain, unspecified (principal); R94.31 Abnormal electrocardiogram [ECG] [EKG] | CPT/HCPCS: 93010 ==

== ENCOUNTER 2025-01-31 16:02 | Emergency (ER) | payer OTHER, SELFPAY ==
[2025-01-31 16:32] VITALS: BP 120/57; PULSE 73; RESP 16; TEMP 36.8; O2SAT 98; BMI 34.5
--- NOTE | 2025-01-31 16:35 | ED.GENADULT ---
HPI - General Adult General Chief complaint: General Medical Stated complaint: home preg +, wants to confirm no menstrual 2months Related Data Previous Rx's ?Medication ?Instructions ?Recorded vitamin with calcium 1 tab PO DAILY 30 days #30 tabs 04/20/20 no.72-iron 27 mg-folic acid 1 mg tablet ( Vitamins Plus Low Iron) bacitracin 500 unit/gram topical 1 appl topical TID #12 ea 02/06/24 packet cephalexin 250 mg capsule 250 mg PO BID #14 caps 02/06/24 hydrocortisone acetate 25 mg 25 mg [place] BID #12 ea 05/07/24 rectal suppository (Anusol-HC) Allergies Allergy/AdvReac Type Severity Reaction Status Date / Time amoxicillin (AMOXICILLIN) Allergy Unknown HIVES Verified 01/31/25 16:35 [facility] Social History Social History Advance Directives: No Advance Directives Information Provided: No Physical Exam ED Vital Signs: Vital Signs - 24 hr 01/31/25 16:32 Temperature 98.3 F Pulse Rate 73 Respiratory Rate 16 Blood Pressure 120/57 L Pulse Oximetry 98 Oxygen Delivery Method Room Air BMI result Body Mass Index 34.5 Course Course Course Narrative: RME performed by Esme Price PA-C. Patient is a 25 year old assigned female at presenting to the emergency department requesting confirmation of . Patient denies any abdominal pain or vaginal bleeding. Patient states she took a test on the that was positive and has not had her cycle since. Patient states that she would like to confirm that she is . Detailed physical exam and review of systems are deferred to the primary care pediatrician. HCG ordered. Patient placed back in the waiting room pending room availability and results. Patient left without completing treatment. Patient's HCG is elevated however, the patient left before myself or any of the other clinicians could discuss this with her. Medical Decision Making Lab Data Labs: Lab Results 01/31/25 Range/Units 16:41 Beta HCG, Quant 995 mIU/mL Discharge Plan Discharge Clinical Impression: Elevated serum hCG Patient Disposition: Left W/O Completing Treatment Prescriptions: No Action Vitamin Plus Low Iron 27 mg iron- 1 mg tablet 1 tab PO DAILY 30 Days Qty: 30 5RF bacitracin 500 unit/gram packet 1 appl topical TID Qty: 12 0RF cephalexin 250 mg capsule 250 mg PO BID Qty: 14 0RF hydrocortisone acetate [Anusol-HC] 25 mg suppository 25 mg [place] BID Qty: 12 0RF Discharge Date/Time: 01/31/25 20:10
--- OUTSIDE RECORDS SUMMARY | 2025-01-31 16:45 | XMS_ITS | Clinical Summary ---
Author Organization [facility] Address [address] [place] [address] Care Team Providers Care Casing In Line Setter Name Role Phone Robbie Adams DO Primary Care Provider [phone] Surgical History Surgery Date Site/Laterality Comments OTHER SURGICAL HISTORY PROCEDURE: DENIES PREVIOUS SURGERY Medical History Medical History Date Comments Depression 05/03/2016 DX:Depression; C OMMENT: 09/20/15- [facility] to discuss therapy options with patient and mom Eczema 05/03/2016 DX:Eczema; COMME NT: 10/30/12 Derm referral ADHD (attention deficit hype ractivity disorder) 05/03/2016 DX:ADHD (attention deficit hyperactivity disorder); COMMENT: Previously on Adderall in 2012. Worked well. Stopped taking it because mom did not want to drug her up . Restart Adderall 09/20/15 and [facility] to discuss therapy options Oppositional defiant disorder 05/03/2016 DX :Oppositional defiant disorder; COMMENT: 10/30/12 referred to counseling. No additional details available in transfer records Sleep concern 05/03/2016 DX:Sleep concern ; COMMENT: Not sleeping well, constantly tired. Start Melatonin 2010. Family History Medical History Relation Name Comments No Known Problems Brother Liver cancer Maternal Grandfather Liver disease Maternal Grandfather Throat cancer Maternal Grandfather MGfa d ied 2 days ago, kidney issues as well Asthma Mother COPD Mother Seizures Paternal Grandfather Seizures Sister 1 No Known Problems Sister 2 No Known Problems Sister 3 Seizures Sister 4 Breast cancer Neg Hx Cervical cancer Neg Hx Colon cancer Neg Hx Ovarian cancer Neg Hx Uterine cancer Neg Hx Relation Name Status Comments Brother Alive Father Alive Maternal Grandfather Maternal Grandmother Alive Mother Alive Paternal Grandfather Paternal Grandmother Alive Sister 1 Alive Sister 2 Alive Sister 3 Alive Sister 4 Alive Social History Tobacco Use Types Packs/Day Years Used Date Smoking Tobacco: Never Smokeless Tobacco: Never Alcohol Use Standard Drinks/Week Comments No 0 (1 standard drink = 0.6 oz pur e alcohol) Comments Unknown Sex and Gender Information Value Date Recorded Sex Assigned at Not on file Legal Sex Female 2:55 PM EST Gender Identity Not on file Sexual Orientation Not on file Obstetrics History Last Filed Vital Signs Vital Sign Reading Time Taken Comments Blood Pressure 87/58 01/17/2022 1:23 PM EDT Pulse 89 01/17/2022 1:23 PM EDT Temperature - - Respiratory Rate - - Oxygen Saturation - - Inhaled Oxygen Concentration - - Weight 96.3 kg (212 lb 6.4 oz) 01/17/2022 1:23 P M EDT Height 162.6 cm (5' 4 ) 01/17/2022 1:23 PM EDT Body Mass Index 36.46 01/17/2022 1:23 PM EDT Plan of Treatment Health Maintenance Due Date Last Done Comments Gonorrhea/Chlamydia Screening 2001 Cervical Cancer Screening: Pap Smear 2022 HIV Screening 05/29/2022 Hepatitis C Screening 05/29/2022 Social Influencers of Health Screening 05/29/2022 COVID-19 Vaccine ( season) 2024 Depression Screening 06/30/2024 Influenza Vaccine (#1) 2025 8, 05/05/2015, 04/24/2011, Additional history exists DTaP,Tdap,and Td Vaccines (8 - Td or Tdap) 12/01/2028 12/01/2018, 10/30/2012, 04/02/2006, Additional history exists Hepatitis B Vaccines Completed 04/28/2002, 2001, 2001 HIB Vaccines Completed 03/04/2003, 05/30, 04/28/2002, Additional history exists Pneumococcal Vaccine: Pediatrics (0 to 5 Years) and At-Risk Patients (6 to 49 Years) Completed 03/04/2003, 06/09/2002, 04/28/2002, Additional history exists IPV Vaccines Completed 04/02/2006, 10/2002, 03/04/2003, Additional history exists MMR Vaccines Completed 04/02/2006, 05/26/2002 Varicella Vaccines Completed 04/24/2011, 05/26/2002 HPV Vaccines Completed 10/30/2012, 09/28, 04/24/2011 Meningococcal ACWY Vaccine Completed 04/27/2018, Hepatitis A Vaccines Aged Out No long er eligible based on patient's age to complete this topic Meningococcal B Vaccine Aged Out No l onger eligible based on patient's age to complete this topic RSV Immunization Patients Under 20 months Aged Out No longer eligible based on patient's age to complete this topic Care Teams Casing In Line Setter Relationship Specialty Start Date End Date Robbie Adams DO PCP - General Internal Medicine 07/25/21
--- OUTSIDE RECORDS SUMMARY | 2025-01-31 16:45 | XMS_ITS ---
Author Name [facility] Organization Unknown Care Team Organization Name Specialty Phone Email Start Date End Da callie [facility] 05/07/20222023
--- OUTSIDE RECORDS SUMMARY | 2025-01-31 16:46 | XMS_ITS | Clinical Summary ---
Author Organization [facility] Address [address] [place] [id number] Phone Care Team Providers Care Inventory Clerk Name Role Phone Pcp, Unknown Primary Care Provider Unavailabl e Allergies No known active allergies Medications medroxyPROGESTER one (DEPO-PROVERA) 150 mg/mL injection Inject 150 mg into the muscle every 3 (three) months. Active Social History Tobacco Use Types Packs/Day Years Used Date Smoking Tobacco: Never Assessed Education Answer Date Recorded Are you interested in more education? Not on tanesha e 11/09/2022 Are you concerned about learning? Not on file 11/09/2022 No 11/09/2022 No 11/09/2022 Digital Access Answer Date Recorded No 11/22/2022 No 11/22/2022 No 11/22/2022 Reliable internet access at home? Not on file 11/22/2022 Device with a working camera? Not on file Intimate Partner Violence Answer Date R ecorded Are you denied basic needs s uch as food, clothing, or medical care? No 04/03/2023 In the past 12 months have y ou been in a relationship with a person who hurts, threatens, or tries to control you? No 04/03/2023 Are you denied basic needs s uch as food, clothing, or medical care? No 04/03/2023 In the past 12 months have y ou been in a relationship with a person who hurts, threatens, or tries to control you? No 04/03/2023 Comments Unknown Sex and Gender Information Value Date Recorded Sex Assigned at Not on file Legal Sex Female 7:02 PM EST Gender Identity Not on file Sexual Orientation Not on file Last Filed Vital Signs Vital Sign Reading Time Taken Comments Blood Pressure 112/64 04/03/2023 10:23 PM EDT Pulse 78 04/03/2023 10:23 PM EDT Temperature 36.8 C (98.2 F) 04/03/2023 10:23 PM EDT Respiratory Rate 20 04/03/2023 10:23 PM EDT Oxygen Saturation 98% 04/03/2023 10:23 PM EDT Inhaled Oxygen Concentration - - Weight 101.2 kg (223 lb) 04/03/2023 4:14 PM EDT Height 162.6 cm (5' 4 ) 04/03/2023 4:14 PM EDT Body Mass Index 38.28 04/03/2023 4:14 PM EDT Plan of Treatment Health Maintenance Due Date Last Done Comments DEPRESSION SCREENING 2013 SMOKING Hx and SMOKELESS TOBACCO SCREENING 2014 CHLAMYDIA SCREENING 2017 HEPATITIS C SCREENING 2019 HIV ONE-TIME SCREENING (18-65 YEARS) 2019 PAP SMEAR 2022 COVID-19 VACCINE ( season) 2024 01/19/2021, 12/28/2020 Adult Td,Tdap Booster 11/04/2029 11/05/2019 , 12/01/2018, 10/30/2012 HIB VACCINES Completed 03/04/2003, 10/2002, 06/09/2002, Additional history exists PNEUMOCOCCAL VACCINES (0-49 years) Aged Out 03/04/2003, 06/09/2002, 04/28/2002, Additional history exists No longer eligible based on patient's age to complete this topic HPV VACCINES Completed 10/30/2012, 09/28, 04/24/2011 MENINGOCOCCAL VACCINES (ACWY) Completed 04/27/2018, 10/30/2012 HEPATITIS A VACCINES Aged Out No long er eligible based on patient's age to complete this topic MENINGOCOCCAL VACCINES (B) Aged Out N o longer eligible based on patient's age to complete this topic Medical Devices Not on file Insurance [facility] [employer] [facility] [place] [address] [facility] [employer] [place] [address] [place] [address] [employer] [place] [address] [place] [address] [employer] [facility] [employer] [address] [place] [address] [facility] Care Teams Inventory Clerk Relationship Specialty Start Date End Date Pcp, Unknown PCP - General 12/28/13 Additional Source Comments The information contained in this document represents components of the legal health record. It is not the complete legal health record.[facility]
--- NOTE | 2025-01-31 20:08 | PC.NURSE ---
Pt called in WR with no answer, per registration pt stated she would look at result on patient portal.
== END 2025-01-31 20:10 | disposition left against medical advice (07) ==
PROVIDERS: Physician Assistant Medical; Emergency Provider Emergency Medicine
DX: R89.1 Abnormal level of hormones in specimens from other organs, systems and tissues (principal); Z53.21 Procedure and treatment not carried out due to patient leaving prior to being seen by health care provider
CPT/HCPCS: 36415; 84702; 99281; 99283